=== PATIENT | female | born 1995 | race Two or more races ===

== ENCOUNTER → 2024-08-30 | Outpatient (CLI) | payer MEDICAID, SELFPAY | END | disposition home or self-care (01) | LOC: SRTX 07:12 | PROVIDERS: Referring Provider Nurse Practitioner Family; Visit Provider Nurse Practitioner Family | DX: R94.01 Abnormal electroencephalogram [EEG] (principal); Z86.69 Personal history of other diseases of the nervous system and sense organs | CPT/HCPCS: 95816 ==